=== PATIENT | male | born 1990 | race Caucasian/White ===

== ENCOUNTER 2021-05-26 19:52 | Emergency (ER) | payer OTHER, SELFPAY ==
[2021-05-26 19:57] VITALS: BP 215/124; PULSE 89; RESP 18; TEMP 37; O2SAT 99; BMI 34.2
--- NOTE | 2021-05-26 20:08 | ED_ITS ---
HPI - Chest Pain General: Chief Complaint: Chest Pain Stated Complaint: Chest Pains Time Seen by Provider: 05/26/21 20:07 PFSH ED PFSH: Social History (System 06/20/19 @ 10:54 by Selena Ramirez) Smoking and tobacco status: never smoked Alcohol intake: never Course Vital Signs: Vital signs: Vital Signs Temperature 98.6 F 05/26/21 19:57 Pulse Rate 89 05/26/21 19:57 Respiratory Rate 18 05/26/21 19:57 Blood Pressure 215/124 05/26/21 19:57 Pulse Oximetry 99 05/26/21 19:57 Discharge Plan Discharge Condition: Stable Prescriptions: No Action amoxicillin 875 mg tablet 875 mg PO BID 7 Days Qty: 14 0RF Referrals: Denis Miller MD [Primary Care Provider] - Coding Level of Care Code ED Timber Estimator for Olena Guzmán
--- NOTE | 2021-05-26 20:12 | ED_ITS ---
Documented by User: EROS West 05/26/21 21:33 HPI - Chest Pain General: Chief Complaint: Chest Pain Stated Complaint: Chest Pains Time Seen by Provider: 05/26/21 20:07 History of Present Illness: 31-year-old male patient comes in today with com plaints of chest discomfort. Patient reports pressure. Patient has known elevation in his blood pressure which is higher than normal. Patient usually runs around 140s over upper 80s. Patient's family history includes father having an CA in his 40s and mother also having some cardiac disease into her 50s. Patient denies smoking but does binge drink alcohol weekly. Patient denies any routine medications. Patient appears well. Patient appears in mild to no pain. MD complaint: chest discomfort Onset (ago): day(s) Timing of current episode: constant Pain location: right chest Associated symptoms: Deny dyspnea, fever(s), nausea or vomiting Review of Systems General: Reports: 10 or more systems reviewed and unremarkable except in HPI and below Const: Denies: fever(s) Card: Reports: chest pain Resp: Denies: dyspnea GI: Denies: nausea or vomiting Musc: Denies: neck pain Skin/Breast: Denies: rash PFSH ED PFSH: Social History (System 06/20/19 @ 10:54 by Selena Ramirez) Smoking and tobacco status: never smoked Alcohol intake: never Physical Exam Const: COMMON NORMALS: alert HENMT: COMMON NORMALS: normocephalic HEAD & SCALP: normocephalic Neck/C-Spine: COMMON NORMALS: full ROM and supple Chest: COMMONS NORMALS: normal palpation of entire chest wall Resp: COMMON NORMALS: normal respiratory effort and clear to auscultation bilaterally AUSCULTATION: clear to auscultation bilaterally Cardio: COMMON NORMALS: regular rate and regular rhythm RATE: regular rate RHYTHM: regular rhythm GI: COMMON NORMALS: Normal to inspection, nondistended, normoactive bowel sounds present Extremity: COMMON NORMALS: normal to inspection and no pedal edema Neuro: SENSORIUM/ORIENTATION: Yes alert Psych: COMMON NORMALS: cooperative Skin: COMMON NORMALS: turgor normal GENERAL SKIN EXAM: turgor normal Course 2 Vital Signs: Vital signs: Vital Signs Temperature 98.6 F 05/26/21 19:57 Pulse Rate 78 05/26/21 21:38 Respiratory Rate 18 05/26/21 21:38 Blood Pressure 145/72 05/26/21 21:38 Pulse Oximetry 97 05/26/21 21:38 MDM - Chest Pain Medical Decision Making 31-year-old male patient comes in today with some chest pressure and elevated blood pressure. On exam patient has normal heart rate in the 80s to 90s, blood pressure was elevated at 215 systolic, no edema is noted in the extremities, abdomen soft nontender, patient is afebrile. Differential diagnosis includes ACS, CHF, uncontrolled hypertension. Chest x-ray was normal. CBC CMP and troponin levels were normal. EKG showed no signs of ischemia. Patient was given 10 mg labetalol with good control of blood pressure down to 140 systolic. Patient had relief of discomfort as his pressure came to his normal range. No signs of ACS was noted. I believe patient is discomfort was due to uncontrolled blood pressure. Patient will be placed on lisinopril 1 tablet daily with follow-up with primary care for further instructions. Patient reported understanding of care plan and need for follow-up. Lab Data : 05/26/21 20:30 05/26/21 20:30 Laboratory Results WBC 9.3 10^3/uL (4.0-10.0) 05/26/21 20:30 RBC 4.50 10^6/uL (4.1-5.3) 05/26/21 20:30 Hgb 13.5 g/dL (11.7-16.6) 05/26/21 20:30 Hct 41.3 % (42.0-52.0) L 05/26/21 20: MCV 91.8 fl (80-94) 05/26/21 20: MCH 30.0 pg (28.0-34.0) 05/26/21 20: MCHC 32.7 g/dL (30.0-36.0) 05/26/21 20:30 RDW 14.3 % (12.1-15.1) 05/26/21 20: Plt Count 235 10^3/cmm (130-400) 05/26/21 20:30 MPV 9.9 fL (7.4-10.4) 05/26/21 20: Neut % (Auto) 63.9 % 05/26/21 20:30 Lymph % (Auto) 26.0 % 05/26/21 20:30 [place] % (Auto) 6.8 % 05/26/21 20:30 Eos % (Auto) 2.6 % 05/26/21 20:30 Baso % (Auto) 0.5 % 05/26/21 20:30 Neut # (Auto) 5.96 10^3/uL (1.8-7.7) 05/26/21 20: Lymph # (Auto) 2.4 10^3/uL (0.8-4.8) 05/26/21 20:30 [place] # (Auto) 0.6 10^3/uL (0.2-0.9) 05/26/21 20:30 Eos # (Auto) 0.2 10^3/uL (0.0-0.8) 05/26/21 20: Baso # (Auto) 0.1 10^3/uL (0.0-0.1) 05/26/21 20: Nucleated RBC % (auto) 0 % 05/26/21 20: Nucleated RBCs # 0.0 /100WBC 05/26/21 20:30 Sodium 137 mmol/L (136-145) 05/26/21 20: Potassium 3.8 mmol/L (3.5-5.1) 05/26/21 20: Chloride 102 mmol/L (98-107) 05/26/21 20: Carbon Dioxide 27 mmol/L (22-29) 05/26/21 20:30 Anion Gap 11.8 (5-19) 05/26/21 20: BUN 17 mg/dL (6-20) 05/26/21 20: Creatinine 1.0 mg/dL (0.7-1.2) 05/26/21 20:30 GFR Calculation 86.1 mL/min (90-130) L 05/26/21 20: Glucose 98 mg/dL (65-115) 05/26/21 20: Calculated Osmolality 286 mOsm/kg (285-295) 05/26/21 20: Calcium 10.1 mg/dL (8.5-10.5) 05/26/21 20:30 Total Bilirubin 0.2 mg/dL (0.15-1.2) 05/26/21: AST 19 U/L (0-40) 05/26/21 20:30 ALT 19 U/L (0-41) 05/26/21 20:30 Alkaline Phosphatase 57 IU/L (40-130) 05/26/21 20:30 Troponin T Gen 5 ng/L 6 ng/L (0-15) 05/26/21 20:30 Total Protein 7.1 g/dL (6.6-8.7) 05/26/21 20:30 Albumin 4.6 g/dL (3.5-5.2) 05/26/21 20:30 Globulin 2.5 g/dL (1.3-4.6) 05/26/21 20:30 EKG Data EKG 1: I personally reviewed and interpreted this EKG as follows: EKG interpretation date: 05/26/21 EKG interpretation time: : Prior EKG tracings: not available for review Interpretation: EKG shows a regular sinus rhythm at [address] elevation or ectopy is noted. No prior exam is available for interpretation. Discharge Plan Discharge Patient Disposition: Home Clinical Impression: Chest pain Qualifiers: Chest pain type: unspecified Qualified Code(s): R07.9 - Chest pain, unspecified Hypertension Qualifiers: Hypertension type: unspecified Qualified Code(s): I10 - Essential (primary) hypertension Condition: Stable Prescriptions: New lisinopril-hydrochlorothiazide 10-12.5 mg tablet 1 tab PO DAILY Qty: 30 0RF No Action amoxicillin 875 mg tablet 875 mg PO BID 7 Days Qty: 14 0RF Discharge Orders: Discharge ED (Routine); Ordered 05/26/21 Ordered By: Juan Rollins Referrals: Denis Miller MD [Primary Care Provider] - Discharge Diet: Usual diet Discharge Activity: Increase activity as tolerated Patient Instructions: DASH Eating Plan (ED), Hypertension (ED) Activity Restrictions/Additional Instructions: Home and rest. Medications as directed. When starting the medicine take your time changing position as you may have some mild lightheadedness. This will improve over time. Follow-up with primary care in 3 to 5 days for recheck. Vahid e management will contact you regarding appointment with scenic arts supervisor for further evaluation. Return to ER for new concerns or worsening symptoms. Coding Level of Care Code ED Office Systems Technology Instructor for Chg Fwd Exam Comprehensive Documented by User: João Kaiser Alvarez, 05/26/21 21:54 HPI - Chest Pain General: Chief Complaint: Chest Pain Stated Complaint: Chest Pains Time Seen by Provider: 05/26/21 20:07 PFSH ED PFSH: Social History (System 06/20/19 @ 10:54 by Selena Ramirez) Smoking and tobacco status: never smoked Alcohol intake: never Course Vital Signs: Vital signs: Vital Signs Temperature 98.6 F 05/26/21 19:57 Pulse Rate 78 05/26/21 21:38 Respiratory Rate 18 05/26/21 21:38 Blood Pressure 145/72 05/26/21 21:38 Pulse Oximetry 97 05/26/21 21:38 MDM - Chest Pain Medical Decision Making 31-year-old male patient comes in today with some chest pressure and elevated blood pressure. On exam patient has normal heart rate in the 80s to 90s, blood pressure was elevated at 215 systolic, no edema is noted in the extremities, ab domen soft nontender, patient is afebrile. Differential diagnosis includes ACS, CHF, uncontrolled hypertension. Chest x-ray was normal. CBC CMP and troponin levels were normal. EKG showed no signs of ischemia. Patient was given 10 mg labetalol with good control of blood pressure down to 140 systolic. Patient had relief of discomfort as his pressure came to his normal range. No signs of ACS was noted. I believe patient is discomfort was due to uncontrolled blood pressure. Patient will be placed on lisinopril 1 tablet daily with follow-up with primary care for further instructions. Patient reported understanding of care plan and need for follow-up. This patient was originally seen by EROS Gunderson.? I agree with his history, evaluation, and treatment. Lab Data : 05/26/21 20:30 05/26/21 20:30 Laboratory Results WBC 9.3 10^3/uL (4.0-10.0) 05/26/21 20:30 RBC 4.50 10^6/uL (4.1-5.3) 05/26/21 20: Hgb 13.5 g/dL (11.7-16.6) 05/26/21 20: Hct 41.3 % (42.0-52.0) L 05/26/21: MCV 91.8 fl (80-94) 05/26/21: MCH 30.0 pg (28.0-34.0) 05/26/21: MCHC 32.7 g/dL (30.0-36.0) 05/26/21: RDW 14.3 % (12.1-15.1) 05/26/21: Plt Count 235 10^3/cmm (130-400) 05/26/21 MPV 9.9 fL (7.4-10.4) 05/26/21: Neut % (Auto) 63.9 % 05/26/21: Lymph % (Auto) 26.0 % 05/26/21: [place] % (Auto) 6.8 % 05/26/21: Eos % (Auto) 2.6 % 05/26/21: Baso % (Auto) 0.5 % 05/26/21: Neut # (Auto) 5.96 10^3/uL (1.8-7.7) 05/26/21: Lymph # (Auto) 2.4 10^3/uL (0.8-4.8) 05/26/21: [place] # (Auto) 0.6 10^3/uL (0.2-0.9) 05/26/21: Eos # (Auto) 0.2 10^3/uL (0.0-0.8) 05/26/21: Baso # (Auto) 0.1 10^3/uL (0.0-0.1) 05/26/21: Nucleated RBC % (auto) 0 % 05/26/21 Nucleated RBCs # 0.0 /100WBC 05/26/21 20: Sodium 137 mmol/L (136-145) 05/26/21: Potassium 3.8 mmol/L (3.5-5.1) 05/26/21 20:30 Chloride 102 mmol/L (98-107) 05/26/21 20:30 Carbon Dioxide 27 mmol/L (22-29) 05/26/21 20:30 Anion Gap 11.8 (5-19) 05/26/21 20:30 BUN 17 mg/dL (6-20) 05/26/21 20:30 Creatinine 1.0 mg/dL (0.7-1.2) 05/26/21 20:30 GFR Calculation 86.1 mL/min (90-130) L 05/26/21 20:30 Glucose 98 mg/dL (65-115) 05/26/21 20:30 Calculated Osmolality 286 mOsm/kg (285-295) 05/26/21 20:30 Calcium 10.1 mg/dL (8.5-10.5) 05/26/21 20:30 Total Bilirubin 0.2 mg/dL (0.15-1.2) 05/26/21 20:30 AST 19 U/L (0-40) 05/26/21 20:30 ALT 19 U/L (0-41) 05/26/21 20:30 Alkaline Phosphatase 57 IU/L (40-130) 05/26/21 20:30 Troponin T Gen 5 ng/L 6 ng/L (0-15) 05/26/21 20:30 Total Protein 7.1 g/dL (6.6-8.7) 05/26/21 20:30 Albumin 4.6 g/dL (3.5-5.2) 05/26/21 20:30 Globulin 2.5 g/dL (1.3-4.6) 05/26/21 20:30 Discharge Plan Discharge Patient Disposition: Home Clinical Impression: Chest pain Qualifiers: Chest pain type: unspecified Qualified Code(s): R07.9 - Chest pain, unspecified Hypertension Qualifiers: Hypertension type: unspecified Qualified Code(s): I10 - Essential (primary) hypertension Condition: Stable Prescriptions: New lisinopril-hydrochlorothiazide 10-12.5 mg tablet 1 tab PO DAILY Qty: 30 0RF No Action amoxicillin 875 mg tablet 875 mg PO BID 7 Days Qty: 14 0RF Discharge Orders: Discharge ED (Routine); Ordered 05/26/21 Ordered By: Juan Rollins Referrals: Denis Miller MD [Primary Care Provider] - Discharge Diet: Usual diet Discharge Activity: Increase activity as tolerated Patient Instructions: DASH Eating Plan (ED), Hypertension (ED) Activity Restrictions/Additional Instructions: Home and rest. Medications as directed. When starting the medicine take your time changing position as you may have some mild lightheadedness. This will improve over time. Follow-up with primary care in 3 to 5 days for recheck. Case management will contact you regarding appointment with scenic arts supervisor for further evaluation. Return to ER for new concerns or worsening symptoms. Coding Level of Care Code ED Office Systems Technology Instructor for Chg Fwd Exam Comprehensive
--- NOTE | 2021-05-26 20:15 | ECG_ITS ---
[facility] Test Date: 2021-05-26 Pat Name: Yuniel Mcneill Department: Room: Gender: Male Distribution Dispatcher: : 1990 Requested By: Juan Rocha Order Number: [id number] Mallika MD: Charles Garcia M.D. Measurements Intervals [place] Rate: 79 P: 29 AL: 164 QRS: 18 QRSD: 108 T: 32 QT: 360 QTc: 413 Interpretive Statements SINUS RHYTHM INCOMPLETE RIGHT BUNDLE BRANCH BLOCK [90+ ms QRS DURATION, TERMINAL R IN V1/V2, 40+ ms S IN I/aVL/V4/V5/V6] No previous ECG available for comparison Electronically Signed On 05-27-2021 9:00:29 CDT by Charles Garcia M.D. [email or web address] [id number]
--- NOTE | 2021-05-26 20:32 | XR_ITS ---
WS: [id number] Exam: XR chest 1V portable [id number] Date/Time of Exam: 05/26/2021 8:52 PM Reason For Exam: chest pain No priors. The lungs are clear and fully inflated. Normal cardiomediastinal silhouette and regional bony structu res. No pleural effusions. XR/XR chest 1V portable [id number] IMPRESSION: 1. Negative chest.
[2021-05-26 20:39] LABS: Basophils # 0.1 10^3/uL (0.0-0.1); Basophils % 0.5 %; Eosinophils # 0.2 10^3/uL (0.0-0.8); Eosinophils % 2.6 %; Hematocrit 41.3 % (42.0-52.0); Hemoglobin 13.5 g/dL (11.7-16.6); Lymphocytes # 2.4 10^3/uL (0.8-4.8); Mean Corpuscular HGB Conc 32.7 g/dL (30.0-36.0); Mean Corpuscular Volume 91.8 fl (80-94); Mean Platelet Volume 9.9 fL (7.4-10.4); Monocytes # 0.6 10^3/uL (0.2-0.9); Monocytes % 6.8 %; Neutrophils # 5.96 10^3/uL (1.8-7.7); Neutrophils % 63.9 %; Nucleated Red Blood Cells % 0 %; Platelet Count 235 10^3/cmm (130-400); Red Cell Distribution Width 14.3 % (12.1-15.1); White Blood Count 9.3 10^3/uL (4.0-10.0)
[2021-05-26] MEDS: labetalol 5 mg/mL SDV 20mL 10 MG IVP (20:39)
[2021-05-26 21:00] LABS: Alanine Aminotransferase 19 U/L (0-41); Albumin Level 4.6 g/dL (3.5-5.2); Alkaline Phosphatase 57 IU/L (40-130); Anion Gap 11.8 (5-19); Aspartate Amino Transferase 19 U/L (0-40); Blood Urea Nitrogen 17 mg/dL (6-20); Calcium 10.1 mg/dL (8.5-10.5); Carbon Dioxide 27 mmol/L (22-29); Chloride 102 mmol/L (98-107); Globulin 2.5 g/dL (1.3-4.6); Glomerular Filtration Rate 86.1 mL/min (90-130); Glucose 98 mg/dL (65-115); Osmolality Calculated 286 mOsm/kg (285-295); Potassium 3.8 mmol/L (3.5-5.1); Sodium 137 mmol/L (136-145); Total Bilirubin 0.2 mg/dL (0.15-1.2); Total Protein 7.1 g/dL (6.6-8.7); Troponin T (5th) Once 6 ng/L (0-15)
[2021-05-26] MEDS: lisinopril 10 mg Tablet PO (21:25)
[2021-05-26 21:38] VITALS: BP 145/72; PULSE 78; RESP 18; O2SAT 97
--- NOTE | 2021-05-27 09:55 | DCPLANNER ---
Addendum entered by Shruthi Veronica 07/18/21 10:07: Patient had a follow up appointment scheduled for 07.17.21 - appointment was cancelled Addendum entered by Shruthi Veronica 05/28/21 14:28: Patient has a follow up appointment scheduled for Thursday, July 17, 2021 at 12:[address] Olguin at [facility]. assistant production manager called patient and gave patient the appointment information. Original Note: assistant production manager had message to schedule a follow up appointment for patient with [facility]. assistant production manager sent patients information to the front staff at [facility] thru [employer] task/message system. Patients information will be printed and reviewed. Clinic will notify correctional counselor/case manager of appointment information.
== END 2021-05-26 21:39 | disposition home or self-care (01) ==
PROVIDERS: Emergency Provider Nurse Practitioner Family; PCP Family Medicine
DX: R07.9 Chest pain, unspecified (principal); I10 Essential (primary) hypertension
CPT/HCPCS: 71045; 80053; 84484; 85025; 93005; 96374; 99283; J3490

== ENCOUNTER → 2021-08-19 14:02 | Outpatient (BNVA) | payer OTHER, SELFPAY | PROVIDERS: PCP Family Medicine; Visit Provider Family Medicine | DX: R07.9 Chest pain, unspecified (principal); I10 Essential (primary) hypertension; R53.83 Other fatigue | CPT/HCPCS: 84402; 84403; 84443 ==

== ENCOUNTER 2022-10-13 20:33 | Emergency (ER) | payer OTHER, SELFPAY ==
[2022-10-13 20:36] VITALS: BP 144/94; PULSE 94; RESP 16; TEMP 36.7; O2SAT 98; BMI 36.2
--- NOTE | 2022-10-13 20:59 | XRR_ITS ---
PROCEDURE INFORMATION: Exam: XR Chest Exam date and time: 10/13/2022 9:23 PM Age: 32 years old Clinical indication: Pain; Chest pressure; Additional info: Chest pain TECHNIQUE: Imaging protocol: Radiologic exam of the chest. Views: 1 view. COMPARISON: CR XR chest 1V portable [id number] 05/26/2021 9:10 PM FINDINGS: Lungs: Unremarkable. No consolidation. Pleural spaces: Unremarkable. No pleural effusion. No pneumothorax. Heart/Mediastinum: Unremarkable. No cardiomegaly. Bones/joints: Unremarkable. XR/XR chest 1V portable [id number] IMPRESSION: No acute findings.
--- NOTE | 2022-10-13 21:00 | ED_ITS ---
HPI - Chest Pain General: Chief Complaint: Chest Pain Stated Complaint: Chest Pains Time Seen by Provider: 10/13/22 20:59 History of Present Illness: 32-year-old male patient comes in today with complaints of left chest wall pain along with neck pain and tingling in left fingers. Patient appears nontoxic. Patient appears in mild to no pain. Patient has a history of anxiety and h ypertension. Patient does chew tobacco and drink alcohol. Patient denies any other drug consumption. Associated symptoms: Deny abdominal pain, dyspnea, nausea or vomiting Review of Systems General: Reports: 10 or more systems reviewed and unremarkable except in HPI and below Card: Denies: chest pain Resp: Denies: dyspnea GI: Denies: abdominal pain, nausea, vomiting, diarrhea or constipation Musc: Denies: back pain Neuro: Reports: numbness in extremities (Left hand fourth and fifth finger) PFSH ED PFSH: Social History (System 06/20/19 @ 10:54 by Selena Ramirez) Smoking and tobacco status: never smoked Alcohol intake: never Substance/Drug Use: never Physical Exam Const: COMMON NORMALS: alert HENMT: COMMON NORMALS: normocephalic HEAD & SCALP: normocephalic Neck/C-Spine: COMMON NORMALS: full ROM CERVICAL SPINE: No Cervical spine tenderness Chest: COMMONS NORMALS: normal inspection of the chest and normal palpation of entire chest wall Resp: COMMON NORMALS: normal respiratory effort and clear to auscultation bilaterally AUSCULTATION: clear to auscultation bilaterally Cardio: COMMON NORMALS: regular rate and regular rhythm RATE: regular rate RHYTHM: regular rhythm GI: COMMON NORMALS: Soft to palpation and non-tender PALPATION: Yes Soft to palpation : COMMON NORMALS: Yes no CVA tenderness BLADDER/KIDNEY EXAM: Yes no CVA tenderness Back/Pelvis: COMMON NORMALS: no CVA tenderness Extremity: COMMON NORMALS: no pedal edema Neuro: SENSORIUM/ORIENTATION: Yes alert Skin: COMMON NORMALS: turgor normal GENERAL SKIN EXAM: turgor normal Course Vital Signs: Vital signs: Vital Signs Temperature 98.1 F 10/13/22 20:36 Pulse Rate 91 10/13/22 22:30 Respiratory Rate 16 10/13/22 22:30 Blood Pressure 130/89 10/13/22 22:30 Pulse Oximetry 97 10/13/22 22:30 Oxygen Delivery Me thod Room Air 10/13/22 20:36 MDM - Chest Pain Medical Decision Making 32-year-old male patient comes in today for complaints of chest pain with left shoulder and numbness in the left fingers. On exam patient appears nontoxic. Patient appears no acute distress. Vital signs are normal. No pain is elicited along the spine. Patient moving all extremities well. Differential diagnosis includes but not limited to anxiety, ACS, cervical radiculopathy, carpal tunnel syndrome. Laboratory values were unremarkable except for his creatinine was 1.7. I believe that this is most likely due to the medication he is on at this time for blood pressure but may also be due to some mild dehydration due to being out in the heat. I encouraged fluid replacement and recheck labs with primary care in 1 week because at that time they may want to switch blood pressure medicine if his creatinine remains elevated. Patient reported understanding and agreed to plan. Lab Data 10/13/22 21:05 10/13/22 21:05 Radiology Impressions Chest X-Ray 10/13/22 20:59 IMPRESSION: No acute findings. Laboratory Results WBC 9.0 10^3/uL (4.0-10.0) 10/13/22 21:05 RBC 4.86 10^6/uL (4.1-5.3) 10/13/22 21:05 Hgb 14.2 g/dL (11.7-16.6) 10/13/22 21:05 Hct 43.8 % (42.0-52.0) 10/13/22 21:05 MCV 90.1 fl (80-94) 10/13/22 21:05 MCH 29.2 pg (28.0-34.0) 10/13/22 21:05 MCHC 32.4 g/dL (30.0-36.0) 10/13/22 21:05 RDW 12.9 % (12.1-15.1) 10/13/22 21:05 Plt Count 241 10^3/cmm (130-400) 10/13/22 21:05 MPV 9.7 fL (7.4-10.4) 10/13/22 21:05 Neut % (Auto) 56.4 % 10/13/22 21:05 Lymph % (Auto) 33.1 % 10/13/22 21:05 [place] % (Auto) 7.0 % 10/13/22 21:05 Eos % (Auto) 2.5 % 10/13/22 21:05 Baso % (Auto) 0.8 % 10/13/22 21:05 Neut # (Auto) 5.08 10^3/uL (1.8-7.7) 10/13/22 21:05 Lymph # (Auto) 3.0 10^3/uL (0.8-4.8) 10/13/22 21:05 [place] # (Auto) 0.6 10^3/uL (0.2-0.9) 10/13/22 21:05 Eos # (Auto) 0.2 10^3/uL (0.0-0.8) 10/13/22 21:05 Baso # (Auto) 0.1 10^3/uL (0.0-0.1) 10/13/22 21:05 Nucleated RBC % (auto) 0 % 10/13/22 21:05 Nucleated RBCs # 0.0 /100WBC 10/13/22 21:05 D-Dimer <= 0.27 ug/mIFEU (0-0.59) 10/13/22 21:05 Sodium 138 mmol/L (136-145) 10/13/22 21:05 Potassium 3.8 mmol/L (3.5-5.1) 10/13/22 21:05 Chloride 100 mmol/L (98-107) 10/13/22 21:05 Carbon Dioxide 28 mmol/L (22-29) 10/13/22 21:05 Anion Gap 13.8 (5-19) 10/13/22 21:05 BUN 15 mg/dL (6-20) 10/13/22 21:05 Creatinine 1.7 mg/dL (0.7-1.2) H 10/13/22 21:05 GFR Calculation 46.4 mL/min (90-130) L 10/13/22 21:05 Glucose 91 mg/dL (65-115) 10/13/22 21:05 Calculated Osmolality 286 mOsm/kg (285-295) 10/13/22 21:05 Calcium 9.5 mg/dL (8.5-10.5) 10/13/22 21:05 Total Bilirubin 0.2 mg/dL (0.15-1.2) 10/13/22 21:05 AST 21 U/L (0-40) 10/13/22 21:05 ALT 32 U/L (0-41) 10/13/22 21:05 Alkaline Phosphatase 63 U/L (40-130) 10/13/22 21:05 Troponin T Baseline 8 ng/L (0-15) 10/13/22 21:05 Total Protein 6.9 g/dL (6.6-8.7) 10/13/22 21:05 Albumin 4.5 g/dL (3.5-5.2) 10/13/22 21:05 Globulin 2.4 g/dL (1.3-4.6) 10/13/22 21:05 Lipase 21 U/L (13-60) 10/13/22 21:05 Discharge Plan Discharge Patient Disposition: Home Clinical Impression: Chest pain Qualifiers: Chest pain type: unspecified Qualified Code(s): R07.9 - Chest pain, unspecified Hypertension Qualifiers: Hypertension type: unspecified Qualified Code(s): I10 - Essential (primary) hypertension Condition: Stable Prescriptions: No Action amoxicillin 875 mg tablet 875 mg PO BID 7 Days Qty: 14 0RF lisinopril-hydrochlorothiazide 10-12.5 mg tablet 1 tab PO DAILY Qty: 30 0RF Discharge Orders: Discharge ED (Routine); Ordered 10/13/22 Ordered By: Juan Rollins Referrals: Denis Miller MD [Primary Care Provider] - Discharge Diet: Usual diet Discharge Activity: Increase activity as tolerated Patient Instructions: Hypertension (ED) Activity Restrictions/Additional Instructions: Drink plenty of water. Follow-up with primary care in 1 week for recheck of labs for kidney function due to some elevation in creatinine. Most likely this is due to the high blood pressure medication you are on and they may need to switch the medication. Is important to stay well-hydrated during the heat as this may also be reasoning for elevation of your creatinine. It is important to have this blood work rechecked as it just may be a transient finding that returns to normal on its own. Return to ER for new concerns such as high fever, no urinary output, swelling of the extremities, and shortness of breath. Coding Level of Care Code ED Registered Diet Technician for Olena Guzmán
--- NOTE | 2022-10-13 21:00 | ECG_ITS ---
[facility] Test Date: 2022-10-13 Pat Name: Yuniel Mcneill Department: Room: Gender: Male [employer]: : 1990 Requested By: Juan Rocha Order Number: [id number] Mallika MD: Chelsi Tobar M.D. Measurements Intervals [place] Rate: 87 P: 35 [place]: 185 QRS: 15 QRSD: 102 T: 43 QT: 352 QTc: 425 Interpretive Statements SINUS RHYTHM Compared to ECG 05/26/2021 20:19:54 Incomplete right bundle-branch block no longer present Electronically Signed On 10-14-2022 3:49:24 CDT by Chelsi Tobar M.D. [id number]
[2022-10-13 21:20] LABS: Basophils # 0.1 10^3/uL (0.0-0.1); Basophils % 0.8 %; Eosinophils # 0.2 10^3/uL (0.0-0.8); Eosinophils % 2.5 %; Hematocrit 43.8 % (42.0-52.0); Hemoglobin 14.2 g/dL (11.7-16.6); Lymphocytes % 33.1 %; Mean Corpuscular HGB Conc 32.4 g/dL (30.0-36.0); Mean Corpuscular Hemoglobin 29.2 pg (28.0-34.0); Mean Corpuscular Volume 90.1 fl (80-94); Mean Platelet Volume 9.7 fL (7.4-10.4); Monocytes # 0.6 10^3/uL (0.2-0.9); Neutrophils # 5.08 10^3/uL (1.8-7.7); Neutrophils % 56.4 %; Nucleated Red Blood Cells % 0 %; Platelet Count 241 10^3/cmm (130-400); Red Blood Count 4.86 10^6/uL (4.1-5.3); Red Cell Distribution Width 12.9 % (12.1-15.1)
[2022-10-13 21:27] LABS: D Dimer <= 0.27 ug/mIFEU (0-0.59)
[2022-10-13 21:35] VITALS: BP 132/81; PULSE 89; RESP 19; O2SAT 98
[2022-10-13 21:35] LABS: Troponin(5th) Baseline 8 ng/L (0-15)
[2022-10-13 21:37] LABS: Alanine Aminotransferase 32 U/L (0-41); Albumin Level 4.5 g/dL (3.5-5.2); Alkaline Phosphatase 63 U/L (40-130); Anion Gap 13.8 (5-19); Aspartate Amino Transferase 21 U/L (0-40); Blood Urea Nitrogen 15 mg/dL (6-20); Calcium 9.5 mg/dL (8.5-10.5); Carbon Dioxide 28 mmol/L (22-29); Chloride 100 mmol/L (98-107); Globulin 2.4 g/dL (1.3-4.6); Glomerular Filtration Rate 46.4 mL/min (90-130); Glucose 91 mg/dL (65-115); Lipase 21 U/L (13-60); Osmolality Calculated 286 mOsm/kg (285-295); Potassium 3.8 mmol/L (3.5-5.1); Sodium 138 mmol/L (136-145); Total Bilirubin 0.2 mg/dL (0.15-1.2); Total Protein 6.9 g/dL (6.6-8.7)
[2022-10-13 22:30] VITALS: BP 130/89; PULSE 91; RESP 16; O2SAT 97
== END 2022-10-13 22:32 | disposition home or self-care (01) ==
PROVIDERS: Emergency Provider Nurse Practitioner Family; PCP Family Medicine
DX: R07.9 Chest pain, unspecified (principal); I10 Essential (primary) hypertension
CPT/HCPCS: 71045; 80053; 83690; 84484; 85025; 85378; 93005; 99285

== ENCOUNTER 2022-11-09 11:05 | Inpatient (IN) | payer OTHER, SELFPAY ==
[2022-11-09] VITALS (8 sets, daily range): BP systolic 118–156; BP diastolic 67–101; PULSE 95–105; RESP 16–20; TEMP 36.7–37.8; O2SAT 91–98; BMI 36.9
--- NOTE | 2022-11-09 11:31 | CTR_ITS ---
PROCEDURE INFORMATION: Exam: CT Pelvis With Contrast Exam date and time: 11/09/2022 1:15 PM Age: 32 years old Clinical indication: Other: Anorectal abscess TECHNIQUE: Imaging protocol: Computed tomography of the pelvis with contrast. Radiation optimization: All CT scans at this facility use at least one of these dose optimization techniques: automated exposure control; mA and/or kV adjustment per patient size (includes targeted exams where dose is matched to clinical indication); or iterative reconstruction. Contrast material: OMNI 350; Contrast volume: 100 ml; Contrast route: INTRAVENOUS (IV); REPORTING DATA: Count of CT and Cardiac NM exams in prior 12 months: This patient has received 0 known CTs and 0 known cardiac nuclear medicine studies in the 12 months prior to the current study. COMPARISON: No relevant prior studies available. RADIATION DOSE METRICS: Total DLP (mGy-cm): 807.54 FINDINGS: Stomach and bowel: Visualized small bowel and colon are unremarkable. Appendix: Appendix is not visualized and appears to been previously removed. Intraperitoneal space: Unremarkable. No free air. No significant fluid collection. Lymph nodes: Unremarkable. No enlarged lymph nodes. Urinary bladder: Unremarkable as visualized. Reproductive: Unremarkable as visualized. Bones/joints: Unremarkable. No acute fracture. No dislocation. Soft tissues: Small oblong shaped thick-walled fluid collection measuring 4.5 x 1.3 x 1.8 cm beginning along the inferior margin of the internal sphincter and extending inferiorly along the medial gluteal fold suspicious for perianal abscess. Surrounding fat planes in the ischial anal fossa are fairly well preserved. CT/CT pelvis w con* [id number] IMPRESSION: 4.5 x 1.3 x 1.8 cm left perianal abscess
--- NOTE | 2022-11-09 11:31 | ED_ITS ---
HPI - Skin/Abscess/Foreign Bdy General: Chief complaint: Skin/Abscess/Foreign Body Stated complaint: abcess sent by Time Seen by Provider: 11/09/22 11:06 History of Present Illness: Yuniel is a 32-year-old man that presents to the emergency department with an abscess. Patient reports perianal abscess. Onset Thursday. This is his third event. Initially had 1 proximately 10 years ago which required surgical intervention. That was performed by Dr. Hobbs who is no longer at this facility. Patient has had this pain since Thursday and has now become febrile Patient is treated for hypertension takes no other medications. Patient was seen originally urgent care sent over for imaging. Associated symptoms: Reports chills and fever(s); Deny nausea or vomiting Review of Systems General: Reports: 10 or more systems reviewed and unremarkable except in HPI and below Const: Reports: fever(s), chills and fatigue; Denies: change in appetite, change in weight or malaise Eyes: Denies: change in vision, eye discomfort, eye discharge or eye redness ENMT: Denies: throat pain, enlarged tonsils, odynophagia, hoarseness, ear or mastoid pain, ear discharge, change in hearing, tinnitus, nasal discharge, nasal congestion, post nasal drip or sinus pain Card: Denies: chest pain, palpitations, irregular heart rhythm, edema, dyspnea on exertion, orthopnea or leg pain with exertion Resp: Denies: dyspnea, productive cough, non-productive cough, wheezing, stridor or chest congestion GI: Reports: rectal pain and rectal swelling; Denies: abdominal pain, nausea, vomiting, dysphagia, diarrhea, constipation, bloating, GI cramping or hematochezia : Denies: flank pain, dysuria, urinary frequency, urinary urgency, urinary hesitancy, oliguria or hematuria Musc: Denies: neck pain, back pain, extremity pain, joint pain, joint swelling, joint redness, joint warmth or muscle weakness Skin/Breast: Denies: rash, pruritus, erythema, photosensitivity or new lesions Neuro: Denies: headache(s), numbness in extremities, weakness in extremities, sensory changes, lack of coordination, difficulty walking, frequent falls, dizziness, confusion, Slurred speech present, difficulty communicating thoughts, seizure-like activity or involuntary movements Endo: Denies: polyuria, polydipsia or tired all the time Roberto/Lymph: Denies: easy bruising or easy bleeding PFSH ED PFSH: Social History Smoking and tobacco status: never smoked Alcohol intake: never Substance/Drug Use: never Physical Exam Const: COMMON NORMALS: no acute distress, patient oriented x3 and alert GENERAL APPEARANCE: cooperative ORIENTATION/CONSCIOUSNESS: Yes awake, Yes oriented to person, Yes oriented to place and Yes oriented to time HENMT: COMMON NORMALS: normocephalic and atraumatic HEAD & SCALP: normocephalic and atraumatic FACE & SINUS: normal facial exam MOUTH: Normal oral and palatal mucosa present THROAT: posterior oropharynx normal Eye: COMMON NORMALS: Equal, round and reactive pupils present, EOMs intact bilaterally, conjunctivae normal and no scleral icterus GENERAL EYE: ap pearance normal, both eyes and all related structures ALIGNMENT: Yes alig nment normal PERIORBITAL: periorbital findings normal CONJUNCTIVA: Yes conjunctivae normal PUPIL: Yes Equal, round and reactive pupils present Neck/C-Spine: COMMON NORMALS: full ROM GENERAL: Yes normal visual inspection Lymph: LYMPHATIC: no lymphadenopathy noted Chest: COMMONS NORMALS: normal inspection of the chest Breast/axilla inspection: Yes no chest deformity, asymmetry, normal contours, no nodules, masses, tenderness Resp: COMMON NORMALS: normal respiratory effort, No retractions, No use of accessory muscles and clear to auscultation bilaterally EFFORT & INSPECTION: Yes able to speak in complete sentences and Yes symmetric chest movement AUSCULTATION: clear to auscultation bilaterally Cardio: COMMON NORMALS: regular rate, regular rhythm and Peripheral pulses 2+ throughout RATE: regular rate RHYTHM: regular rhythm PERIPHERAL PULSES: Peripheral pulses 2+ throughout GI: COMMON NORMALS: Normal to inspection, nondistended, normoactive bowel sounds present, Soft to palpation, non-tender and No hepatosplenomegaly present INSPECTION: Yes normal to inspection AUSCULTATION: Yes normoactive bowel sounds PALPATION: Yes Soft to palpation and Yes No hepatosplenomegaly present RECTAL EXAM: Yes tenderness and Yes other (anorectal abscess that extends into the left intergluteal cleft) Extremity: COMMON NORMALS: normal to inspection GENERAL: Yes normal exam except as noted Neuro: COMMON NORMALS: patient oriented x3 SENSORIUM/ORIENTATION: Yes alert, Yes oriented to person, Yes oriented to place and Yes oriented to time CRANIAL NERVES: Yes CN normal except as noted Psych: COMMON NORMALS: mental status grossly normal, Normal thought process p resent, cooperative, activity/motor behavior normal, denies homicidal ideation and denies suicidal ideation THOUGHT PROCESS: Normal thought process present Skin: COMMON NORMALS: no rashes or lesions noted, no wounds and turgor normal GENERAL SKIN EXAM: no rashes or lesions noted and turgor normal Course Vital Signs: Vital signs: Vital Signs Temperature 98.0 F 11/09/22 11:06 Pulse Rate 95 11/09/22 11:06 Respiratory Rate 17 11/09/22 14:28 Blood Pressure 135/73 11/09/22 11:24 Pulse Oximetry 95 11/09/22 14:28 Oxygen Delivery Me thod Room Air 11/09/22 11:06 MDM - Skin/Abscess/Foreign Bdy Medicial Decision Making Patient was evaluated in the emergency department due to perianal pain. Patient states he has a history of perianal abscesses. 1 given required surgical resection proximately [address] Hobbs. Patient states this episode started on Thursday and has rapidly increased with pain and swelling. Patient is no longer able to pass stools secondary to pain Patient has abscess formation localized at the anus and extending up the left intergluteal cleft Did obtain laboratory studies to evaluate extent of illness and obtained a CT pelvis with contrast. CT pelvis reveals a 4.5 x 1.3 x 1.8 cm left perianal abscess that extends inferiorly from the internal sphincter. Patient has a mild elevation in white count and mild elevation in creatinine without history. Lactic acid is normal No electrolyte abnormalities Consulted Dr. Tello with general surgery who is recommended colorectal surgery. Patient has selected [facility] we are seeking out line facility transfer Fortunately [facility] does not have colorectal surgeon on today and [facility] does not have a bed available. [facility] was contacted but does not have a bed available. Talked with patient about which direction to take n ext for transfer and he is declining. He would prefer to have outpatient follow-up. I did speak with Dr. Tello who has agreed to do an I&D for perianal abscess tomorrow; patient will then seek outpatient follow-up for colorectal surgery for definitive treatment. Case management is consulted to assist with outpatient referral Patient was given vancomycin today and admission orders were placed for Tello. Patient has been updated Lab Data 11/09/22 11:56 11/09/22 11:[address] 11/09/22 11:31 IMPRESSION: 4.5 x 1.3 x 1.8 cm left perianal abscess Laboratory Results WBC 12.10 10^3/uL (3.29-11.43) H 11/09/22 11:56 RBC 4.64 10^6/uL (3.85-5.65) 11/09/22 11:56 Hgb 13.70 g/dL (11.27-16.99) 11/09/22 11:56 Hct 42.4 % (37-53) 11/09/22 11:56 MCV 91.4 fl (82-101) 11/09/22 11:56 MCH 29.5 pg (27-33) 11/09/22 11:56 MCHC 32.3 g/dL (30-55) 11/09/22 11:56 RDW 12.7 % (12.1-15.1) 11/09/22 11:56 Plt Count 212 10^3/cmm (157-399) 11/09/22 11:56 MPV 9.3 fL (7.4-10.4) 11/09/22 11:56 Neut % (Auto) 74.4 % 11/09/22 11:56 Lymph % (Auto) 17.6 % 11/09/22 11:56 Rabun % (Auto) 6.1 % 11/09/22 11:56 Eos % (Auto) 1.1 % 11/09/22 11:56 Baso % (Auto) 0.5 % 11/09/22 11:56 Neut # (Auto) 9.00 10^3/uL (1.8-7.7) H 11/09/22 11:56 Lymph # (Auto) 2.1 10^3/uL (0.8-4.8) 11/09/22 11:56 Rabun # (Auto) 0.7 10^3/uL (0.2-0.9) 11/09/22 11:56 Eos # (Auto) 0.1 10^3/uL (0.0-0.8) 11/09/22 11:56 Baso # (Auto) 0.1 10^3/uL (0.0-0.1) 11/09/22 11:56 Nucleated RBC % (auto) 0 % 11/09/22 11:56 Nucleated RBCs # 0.0 /100WBC 11/09/22 11:56 Sodium 138 mmol/L (136-145) 11/09/22 11:56 Potassium 4.1 mmol/L (3.5-5.1) 11/09/22 11:56 Chloride 102 mmol/L (98-107) 11/09/22 11:56 Carbon Dioxide 24 mmol/L (22-29) 11/09/22 11:56 Anion Gap 16.1 (5-19) 11/09/22 11:56 BUN 14 mg/dL (6-20) 11/09/22 11:56 Creatinine 1.3 mg/dL (0.7-1.2) H 11/09/22 11:56 GFR Calculation 63.2 mL/min (90-130) L 11/09/22 11:56 Glucose 93 mg/dL (65-115) 11/09/22 11:56 Calculated Osmolality 286 mOsm/kg (285-295) 11/09/22 11:56 Lactic Acid 1.0 mmol/L (0.5-2.2) 11/09/22 13:06 Calcium 9.2 mg/dL (8.5-10.5) 11/09/22 11:56 Total Bilirubin 0.4 mg/dL (0.15-1.2) 11/09/22 11:56 AST 25 U/L (0-40) 11/09/22 11:56 ALT 35 U/L (0-41) 11/09/22 11:56 Alkaline Phosphatase 76 U/L (40-130) 11/09/22 11:56 Total Protein 7.6 g/dL (6.6-8.7) 11/09/22 11:56 Albumin 4.3 g/dL (3.5-5.2) 11/09/22 11:56 Globulin 3.3 g/dL (1.3-4.6) 11/09/22 11:56 Discharge Plan Discharge Patient Disposition: Admitted As Inpatient Clinical Impression: Abscess, perianal Condition: Stable Prescriptions: No Action mupirocin 2 % ointment 1 applic topical TID 10 Days Qty: 15 0RF sulfamethoxazole-trimethoprim [Bactrim DS] 800-160 mg tablet 1 tab PO BID 7 Days Qty: 14 0RF lisinopril-hydrochlorothiazide 10-12.5 mg tablet 1 tab PO DAILY Qty: 30 0RF Multi-Vitamins Tablet 1 tab PO DAILY Referrals: Denis Miller MD [Primary Care Provider] - Coding Level of Care Code ED Commercial Kitchen Service Technician for Olena Guzmán
[2022-11-09] MEDS: ondansetron 2 mg/ML SDV 2 mL 4 MG IVP (11:49)
[2022-11-09] MEDS: fentaNYL 50 mcg/mL INJ 2mL IVP ×2 (11:50→14:28)
[2022-11-09 12:05] LABS: Basophils # 0.1 10^3/uL (0.0-0.1); Basophils % 0.5 %; Eosinophils # 0.1 10^3/uL (0.0-0.8); Eosinophils % 1.1 %; Hematocrit 42.4 % (37-53); Lymphocytes # 2.1 10^3/uL (0.8-4.8); Lymphocytes % 17.6 %; Mean Corpuscular HGB Conc 32.3 g/dL (30-55); Mean Corpuscular Hemoglobin 29.5 pg (27-33); Mean Corpuscular Volume 91.4 fl (82-101); Mean Platelet Volume 9.3 fL (7.4-10.4); Monocytes # 0.7 10^3/uL (0.2-0.9); Monocytes % 6.1 %; Neutrophils % 74.4 %; Nucleated Red Blood Cells % 0 %; Platelet Count 212 10^3/cmm (157-399); Red Blood Count 4.64 10^6/uL (3.85-5.65); Red Cell Distribution Width 12.7 % (12.1-15.1)
[2022-11-09 12:35] LABS: Alanine Aminotransferase 35 U/L (0-41); Albumin Level 4.3 g/dL (3.5-5.2); Alkaline Phosphatase 76 U/L (40-130); Anion Gap 16.1 (5-19); Aspartate Amino Transferase 25 U/L (0-40); Blood Urea Nitrogen 14 mg/dL (6-20); Calcium 9.2 mg/dL (8.5-10.5); Carbon Dioxide 24 mmol/L (22-29); Chloride 102 mmol/L (98-107); Globulin 3.3 g/dL (1.3-4.6); Glomerular Filtration Rate 63.2 mL/min (90-130); Glucose 93 mg/dL (65-115); Osmolality Calculated 286 mOsm/kg (285-295); Potassium 4.1 mmol/L (3.5-5.1); Sodium 138 mmol/L (136-145); Total Bilirubin 0.4 mg/dL (0.15-1.2); Total Protein 7.6 g/dL (6.6-8.7)
[2022-11-09] MEDS: sodium chloride 0.9% 1,000 ML 999 ML IV (13:06)
[2022-11-09] MEDS: piperacillin-tazobactam 3.375 GM in sodium chloride 0.9% (plus) 50 ML IV (15:24)
[2022-11-09] MEDS: vancomycin 1,750 MG/350 ML PIGGYBACK 233.33 MG IV (16:22)
[2022-11-09] MEDS: sodium chloride 0.9% 1,000 ML 100 ML IV (16:22)
[2022-11-09] MEDS: morphine 4 mg/mL SDV 1 mL IVP (16:23)
[2022-11-09] MEDS: HYDROcodone-acetaminophen 5-325 mg Tablet 1 TAB PO (19:40)
[2022-11-10] VITALS (17 sets, daily range): BP systolic 104–135; BP diastolic 63–81; PULSE 79–101; RESP 15–18; TEMP 36.2–37.5; O2SAT 92–96
[2022-11-10] MEDS: HYDROcodone-acetaminophen 5-325 mg Tablet 1 TAB PO ×2 (00:16→16:02)
[2022-11-10] MEDS: sodium chloride 0.9% 1,000 ML 100 ML IV ×2 (00:26→11:44)
[2022-11-10] MEDS: vancomycin 1,750 MG/350 ML PIGGYBACK 233.33 MG IV (04:31)
--- NOTE | 2022-11-10 12:52 | P.HP_ITS ---
Providers/Chief Complaint Admitting Physician: Chad Tello DO Primary Care Provider: Denis Miller MD Chief Complaint: abcess sent by History of Present Illness Yuniel Mcneill is a 32 year old male who presents to the emergency room with a 2- day history of perirectal pain. He has had 2 perirectal abscesses in the past. He denies any fever or chills. Pain is located in his peroneum. Pain is sharp and constant. Palpation makes pain worse. Nothing makes pain better. Denies any fever or chills. CT of the pelvis shows an intersphincteric perirectal abscess Review of Systems General: Reports: 10 or more systems reviewed and unremarkable except in HPI and below Medications/Allergies Home Medications Medication Instructions Recorded Confirmed Last Taken Type lisinopril 10 1 tab PO DAILY #30 tabs 05/26/21 11/09/22 11/08/22 Rx mg-hydrochlorothiazide 12.5 mg tablet mupirocin 2 % topical ointment 1 applic topical TID 10 days #15 11/07/22 11/09/22 Unknown Rx grams sulfamethoxazole 800 1 tab PO BID 7 days #14 tabs 11/07/22 11/09/22 11/09/22 Rx mg-trimethoprim 160 mg tablet (Bactrim DS) multivitamin 1 tab PO DAILY 11/09/22 11/09/22 11/08/22 History Allergies Allergy/AdvReac Type Severity Reaction Status Date / Time adhesive Allergy ALGY-Hives Verified 11/09/22 11:12 PFSH Acute PFSH: Social History Smoking and tobacco status: never smoked Alcohol intake: never Substance/Drug Use: never Vitals/I&O/Wt Last Vital Signs Temp 98.0 F 11/10/22 11:21 Pulse 83 11/10/22 11:21 Resp 16 11/10/22 11:21 BP 105/68 11/10/22 08:00 Pulse Ox 96 11/10/22 11:21 O2 Del Method Room Air 11/10/22 11:21 11/09/22 11/10/22 11/10/22 22:59 06:59 14:59 Intake Total 999 806.667 / 2806.667 1350 / 1350 Balance 999 806.667 / 2806.667 1350 / 1350 Weight last 48 hrs Weight 265 lb Physical Exam Narrative: General : Patient is well developed , no acute distress, oriented x3 Head : Normal cephalic, a-traumatic. Ears : Pinnae and external canal are normal. Hearing is normal. Eyes : PERRLA, Sclera and injection are normal. No conjunctival discharge. Nose : Mucous membranes are without erythema. Throat : buccal mucosa is normal, gums are without significant recession or hypertrophy. Lungs : Equal chest rise bilaterally, no use of accessory muscles, trachea is midline. Cor : Rate and rhythm are normal. Abdomen : Soft, ND, NT, no g/r/m skin: There is an open and draining abscess In the left buttock and perineum Extremities : No edema, no cyanosis or clubbing, dorsalis pedis pulses are present bilaterally, non-tender to palpation of calves. Upper extremities are normal bilaterally. Back : non-tender to palpation, no CVA tenderness. Neuro : CN II - XII intact, Upper and lower extremities have equal and full strength Data 11/09/22 11:56 11/09/22 11:56 A&P Assessment and plan (1) Perirectal abscess: Plan Incision and drainage of perirectal abscess The risk and benefits of procedure, including but not limited to, bleeding, infection, recurrence, scar, numbness, pain, damage to surrounding structures including the anal sphincter, were explained to the patient. He is understanding of the risks and wishes to proceed Attestations Medical Necessity Statement*: Gallbladder 1 night in the hospital for IV antibiotics and recovery after incision and drainage of perirectal abscess Coding Level of Care Code 08537 Diagnoses Perirectal abscess K61.1
[2022-11-10] MEDS: sodium chloride 0.9% 1,000 ML 30 ML IV (13:32)
[2022-11-10] MEDS: lidocaine-epi 2% 20 mL INJ INJECTION (14:36)
--- NOTE | 2022-11-10 15:57 | P.OP_ITS ---
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 Incision and drainage is indicated. The risk and benefits were explained and documented. Procedure: Patient was wheeled in operative room and remained on his hospital bed in the s upine position. General anesthesia with an LMA was performed by the department of anesthesia. Patient was then put in the left lateral decubitus position. The perineum and surrounding areas were inspected prepped and draped in usual sterile fashion. A timeout was performed. All present were in agreement. After localizing with 2% lidocaine with epinephrine, the area where the abscess was draining on the left buttock near the anus was extended with a 10 blade scalpel to 1.5 cm. There was minimal purulence. Abscess cavity was gently probed and cultures were taken. The cavity was irrigated and suctioned. Half- inch iodoform gauze was packed into the wound. Sterile bandages applied. Patient tolerated procedure well.
[2022-11-10] MEDS: piperacillin-tazobactam 3.375 GM in sodium chloride 0.9% (plus) 50 ML IV (16:03)
--- NOTE | 2022-11-10 16:56 | ANES.PREANE2 ---
Pre-Anesthetic Assessment Height/Weight: Height 1.8 m Weight 120.202 kg Temp Pulse Resp BP Pulse Ox O2 Del Method O2 Flow Rate 97.4 F L 92 16 124/74 95 Room Air 6 11/10/22 15:28 11/10/22 15:28 11/10/22 15:28 11/10/22 15:28 11/10/22 15:28 11/10/22 15:28 11/10/22 14:54 Operation Date: 11/10/22 14:20 Proposed Procedures p Perirectal Abscess Incision And Drainage(Not Applicable) - Chad Tello DO Familial anesthetic complications: none Was Beta Mary taken within 24 hours: N/A Was Clonidine taken within 24 hours: N/A Last intake: Intake Last Liquid Date 11/09/22 Last Liquid Time 23:30 Last Solid Date 11/09/22 Last Solid Time 22:00 Social No alcohol and No tobacco Exam alert, oriented x 3, clear to auscultation bilaterally and regular rate & rhythm Airway Submandibular: within normal limits Cervical ROM: within normal limits Mallampati: Class II Dentition: full CV/HEM Hypertension Metabolic Morbid Obesity Anesthetic Plan ASA status: 2 Anesthesia: Choice Medications/Allergies Home Medications Medication Instructions Recorded Confirmed Last Taken Type lisinopril 10 1 tab PO DAILY #30 tabs 05/26/21 11/09/22 11/08/22 Rx mg-hydrochlorothiazide 12.5 mg tablet mupirocin 2 % topical ointment 1 applic topical TID 10 days #15 11/07/22 11/09/22 Unknown Rx grams sulfamethoxazole 800 1 tab PO BID 7 days #14 tabs 11/07/22 11/09/22 11/09/22 Rx mg-trimethoprim 160 mg tablet (Bactrim DS) multivitamin 1 tab PO DAILY 11/09/22 11/09/22 11/08/22 History Allergies Allergy/AdvReac Type Severity Reaction Status Date / Time adhesive Allergy ALGY-Hives Verified 11/09/22 11:12 Current Medications Generic Name Dose Route Start Last Admin Trade Name Freq PRN Reason Stop Dose Admin Hydrocodone Bitart/Acetaminophen 1 tab 11/09/22 14:58 11/10/22 16:02 Hydrocodone-Acetaminophen 5-325 Mg Tablet PO 1 tab Q4H PRN Administration MODERATE TO SEVERE PAIN Sodium Chloride 1,000 mls @ 100 mls/hr 11/09/22 15:00 11/10/22 11:44 Sodium Chloride 0.9% IV 100 mls/hr .Q10H AASHISH Administration Vancomycin/PEG/NADA/Lysine/Water 1,750 mg in 350 mls @ 233.333 mls/hr 11/09/22 15:30 11/10/22 07:07 Vancocin IV Infused Q12H AASHISH Infusion Piperacillin Sod/Tazobactam 50 mls @ 12.5 mls/hr 11/10/22 13:00 11/10/22 16:03 Sod 3.375 gm/ Sodium Chloride IV 12.5 mls/hr Q8H AASHISH Administration Protocol Morphine Sulfate 4 mg 11/09/22 14:58 11/09/22 16:23 Morphine 4 Mg/Ml Sdv 1 Ml IVP 4 mg Q4H PRN Administration SEVERE PAIN PFSH Anesthesia Social History Smoking and tobacco status: never smoked Alcohol intake: never Substance/Drug Use: never Data Anesthesia 11/09/22 11:56 11/09/22 11:56 Short CBC 11/09/22 Range/Units 11:56 WBC 12.10 H (3.29-11.43) 10^3/uL Hgb 13.70 (11.27-16.99) g/dL Hct 42.4 (37-53) % MCV 91.4 (82-101) fl Plt Count 212 (157-399) 10^3/cmm Neut % (Auto) 74.4 % Neut # (Auto) 9.00 H (1.8-7.7) 10^3/uL BMP 11/09/22 11:56 Sodium 138 Potassium 4.1 Chloride 102 Carbon Dioxide 24 BUN 14 Creatinine 1.3 H Glucose 93 Calcium 9.2 Liver Function 11/09/22 Range/Units 11:56 Total Bilirubin 0.4 (0.15-1.2) mg/dL AST 25 (0-40) U/L ALT 35 (0-41) U/L Alkaline Phosphatase 76 (40-130) U/L Albumin 4.3 (3.5-5.2) g/dL Cardiac Studies: No Data to Display
--- NOTE | 2022-11-10 17:02 | ANE.PACU2 ---
Inpatient post-anesthesia follow up: Airway intact: Yes Vital signs: Temperature 97.4 F Pulse Rate 92 Respiratory Rate 16 Blood Pressure 124/74 Pulse Oximetry 95 Oxygen Delivery Me thod Room Air Oxygen Flow Rate 6 Fraction of Inspir ed Oxygen Hydration adequate: Yes Nausea and vomiting: No Pain level: 2 Mental status: Baseline
[2022-11-10] MEDS: morphine 4 mg/mL SDV 1 mL IVP (18:38)
[2022-11-11] VITALS: BP 111/64; PULSE 78; RESP 17; TEMP 36.4; O2SAT 94
[2022-11-11] MEDS: piperacillin-tazobactam 3.375 GM in sodium chloride 0.9% (plus) 50 ML IV ×2 (00:07→08:27)
[2022-11-11] MEDS: sodium chloride 0.9% 1,000 ML 100 ML IV (00:08)
[2022-11-11 02:56] LABS: Vancomycin Trough < 4.0 ug/mL (10-15)
[2022-11-11 04:00] VITALS: BP 119/76; PULSE 78; RESP 19; TEMP 36.8; O2SAT 96
[2022-11-11] MEDS: vancomycin 1,750 MG/350 ML PIGGYBACK 233.3 MG IV (04:11)
[2022-11-11] MEDS: HYDROcodone-acetaminophen 5-325 mg Tablet 1 TAB PO ×2 (04:14→08:27)
[2022-11-11 08:00] VITALS: BP 138/82; PULSE 72; RESP 15; TEMP 36.6; O2SAT 95
--- NOTE | 2022-11-11 08:54 | P.DS_ITS ---
Discharge Providers Date of Admission: 11/09/22 14:58 Date of Discharge: November 11, 2022 Attending Provider at Admission: Chad Tello DO Attending Provider at Discharge: Chad Tello DO Primary Care Provider: Denis Miller MD Diagnoses at Discharge Discharge Diagnosis (1) Perirectal abscess: Status: Acute Reason for Visit Reason for Visit: abcess sent by Hospital Course Hospital Course This is a very pleasant 32-year-old gentleman who presented to the hospital with a perirectal abscess. This is his third perirectal abscess. CT shows the abscess goes intersphincteric. He underwent incision and drainage and was discharged home in good condition the next day. Physical Exam Narrative: General : Patient is well developed , no acute distress, oriented x3 Head : Normal cephalic, a-traumatic. Ears : Pinnae and external canal are normal. Hearing is normal. Eyes : PERRLA, Sclera and injection are normal. No conjunctival discharge. Nose : Mucous membranes are without erythema. Throat : buccal mucosa is normal, gums are without significant recession or hypertrophy. Lungs : Equal chest rise bilaterally, no use of accessory muscles, trachea is midline. Cor : Rate and rhythm are normal. Abdomen : Soft, ND, NT, no g/r/m Extremities : No edema, no cyanosis or clubbing, dorsalis pedis pulses are present bilaterally, non-tender to palpation of calves. Upper extremities are normal bilaterally. Back : non-tender to palpation, no CVA tenderness. Neuro : CN II - XII intact, Upper and lower extremities have equal and full [facility] Discharge Data Studies Completed and Pending Completed Studies During Hospitalization Category Date Time Status CT pelvis w con* [id number] Stat Cat Scan 11/09/22 11:31 Completed Pending at discharge Category Date Time Status Anaerobic Culture Routine Lab 11/10/22 14:39 Results Vancomycin Trough Timed Lab 11/12/22 02:30 Ordered Wound Culture and Gram Stain Routine Lab 11/10/22 14:39 Results Radiology Impressions Pelvis CT 11/09/22 11:31 IMPRESSION: 4.5 x 1.3 x 1.8 cm left perianal abscess Laboratory Results WBC 12.10 10^3/uL (3.29-11.43) H 11/09/22 11:56 RBC 4.64 10^6/uL (3.85-5.65) 11/09/22 11:56 Hgb 13.70 g/dL (11.27-16.99) 11/09/22 11:56 Hct 42.4 % (37-53) 11/09/22 11:56 MCV 91.4 fl (82-101) 11/09/22 11:56 MCH 29.5 pg (27-33) 11/09/22 11:56 MCHC 32.3 g/dL (30-55) 11/09/22 11:56 RDW 12.7 % (12.1-15.1) 11/09/22 11:56 Plt Count 212 10^3/cmm (157-399) 11/09/22 11:56 MPV 9.3 fL (7.4-10.4) 11/09/22 11:56 Neut % (Auto) 74.4 % 11/09/22 11:56 Lymph % (Auto) 17.6 % 11/09/22 11:56 Polk % (Auto) 6.1 % 11/09/22 11:56 Eos % (Auto) 1.1 % 11/09/22 11:56 Baso % (Auto) 0.5 % 11/09/22 11:56 Neut # (Auto) 9.00 10^3/uL (1.8-7.7) H 11/09/22 11:56 Lymph # (Auto) 2.1 10^3/uL (0.8-4.8) 11/09/22 11:56 Polk # (Auto) 0.7 10^3/uL (0.2-0.9) 11/09/22 11:56 Eos # (Auto) 0.1 10^3/uL (0.0-0.8) 11/09/22 11:56 Baso # (Auto) 0.1 10^3/uL (0.0-0.1) 11/09/22 11:56 Nucleated RBC % (auto) 0 % 11/09/22 11:56 Nucleated RBCs # 0.0 /100WBC 11/09/22 11:56 Sodium 138 mmol/L (136-145) 11/09/22 11:56 Potassium 4.1 mmol/L (3.5-5.1) 11/09/22 11:56 Chloride 102 mmol/L (98-107) 11/09/22 11:56 Carbon Dioxide 24 mmol/L (22-29) 11/09/22 11:56 Anion Gap 16.1 (5-19) 11/09/22 11:56 BUN 14 mg/dL (6-20) 11/09/22 11:56 Creatinine 1.3 mg/dL (0.7-1.2) H 11/09/22 11:56 GFR Calculation 63.2 mL/min (90-130) L 11/09/22 11:56 Glucose 93 mg/dL (65-115) 11/09/22 11:56 Calculated Osmolality 286 mOsm/kg (285-295) 11/09/22 11:56 Lactic Acid 1.0 mmol/L (0.5-2.2) 11/09/22 13:06 Calcium 9.2 mg/dL (8.5-10.5) 11/09/22 11:56 Total Bilirubin 0.4 mg/dL (0.15-1.2) 11/09/22 11:56 AST 25 U/L (0-40) 11/09/22 11:56 ALT 35 U/L (0-41) 11/09/22 11:56 Alkaline Phosphatase 76 U/L (40-130) 11/09/22 11:56 Total Protein 7.6 g/dL (6.6-8.7) 11/09/22 11:56 Albumin 4.3 g/dL (3.5-5.2) 11/09/22 11:56 Globulin 3.3 g/dL (1.3-4.6) 11/09/22 11:56 Vancomycin Trough < 4.0 ug/mL (10-15) L 11/11/22 02:32 Procedures Performed Incision and drainage of perirectal abscess Vitals Last Vital Signs Temp 97.8 F 11/11/22 08:00 Pulse 72 11/11/22 08:00 Resp 15 11/11/22 08:00 BP 138/82 11/11/22 08:00 Pulse Ox 95 11/11/22 08:00 O2 Del Method Room Air 11/11/22 04:00 O2 Flow Rate 6 11/10/22 14:54 Discharge Plan Discharge Patient Disposition: Home Condition: Stable Prescriptions: New amoxicillin-pot clavulanate 875-125 mg tablet 1 tab PO BID Qty: 20 0RF hydrocodone-acetaminophen 10-325 mg tablet 1 tab PO Q6H PRN (Reason: pain) Qty: 20 0RF Rx Instructions: May take half of a tab at a time Colace 100 mg capsule 100 mg PO BID Qty: 14 0RF Continued mupirocin 2 % ointment 1 applic topical TID 10 Days Qty: 15 0RF lisinopril-hydrochlorothiazide 10-12.5 mg tablet 1 tab PO DAILY Qty: 30 0RF multivitamin Tablet 1 tab PO DAILY Discontinued sulfamethoxazole-trimethoprim [Bactrim DS] 800-160 mg tablet 1 tab PO BID 7 Days Qty: 14 0RF Discharge Orders: Discharge Order (Routine); Ordered 11/11/22 Ordered By: Chad Tello Referrals: Denis Miller MD [Primary Care Provider] - 4-7 days Chad Tello DO [Physician] - 2 weeks Discharge Diet: Advance as tolerated Discharge Activity: Resume usual activity Patient Instructions: Opioid Safety Activity Restrictions/Additional Instructions: Change dressing daily with half-inch plain packing gauze. Pack until it cannot be packed anymore. Shower daily with soap and water. Do not soak incision underwater until healed Discharge Attestations Time Spent in Discharge Care*: less than 30 min Quality Metrics Clinical Quality Measures [ No reported AMI, CVA or VTE this stay] Coding Level of Care Code Acute Code for Chg Fwd Diagnoses Perirectal abscess K61.1
== END 2022-11-11 10:35 | disposition home or self-care (01) | DRG 395 ==
LOC: ER 15:21 → MEDSURG 16:10
PROVIDERS: Emergency Medicine; Admitting Provider Surgery; Emergency Provider Nurse Practitioner; PCP Family Medicine; Visit Provider Surgery
PROC: 0J990ZZ Drainage of Buttock Subcutaneous Tissue and Fascia, Open Approach (ICD-10-PCS; CPT 46040; principal; 2022-11-10 14:10)
DX: K61.1 Rectal abscess (principal)
CPT/HCPCS: 36415; 72193; 80053; 80202; 83605; 85025; 87070; 87075; 87077; 87205; 96365; 96375; 96376; 99285; J1100; J2270; J2405; J2543; J2704; J3010; J3372; J7030

== ENCOUNTER 2023-05-09 12:51 | Emergency (ER) | payer OTHER, SELFPAY ==
[2023-05-09 13:05] VITALS: BP 156/88; PULSE 99; RESP 16; TEMP 36.6; O2SAT 99
--- NOTE | 2023-05-09 13:31 | XRR_ITS ---
PROCEDURE INFORMATION: Exam: XR Chest Exam date and time: 05/09/2023 1:36 PM Age: 32 years old Clinical indication: Pain; Chest pressure; Additional info: Cxp TECHNIQUE: Imaging protocol: Radiologic exam of the chest. Views: 1 view. COMPARISON: CR XR chest 1V portable [id number] 10/13/2022 9:23 PM FINDINGS: Lungs: Unremarkable. No consolidation. Pleural spaces: Unremarkable. No pleural effusion. No pneumothorax. Heart/Mediastinum: Unremarkable. No cardiomegaly. Bones/joints: Unremarkable. XR/XR chest 1V portable [id number] IMPRESSION: No acute findings.
--- NOTE | 2023-05-09 13:32 | ECG_ITS ---
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 Measurements Intervals [place] Rate: 94 P: 41 AL: 177 QRS: 7 QRSD: 114 T: 37 QT: 328 QTc: 410 Interpretive Statements SINUS RHYTHM INCOMPLETE RIGHT BUNDLE BRANCH BLOCK [90+ ms QRS DURATION, TERMINAL R IN V1/V2, 40+ ms S IN I/aVL/V4/V5/V6] SEPTAL MYOCARDIAL INFARCTION , PROBABLY OLD [40+ ms Q WAVE IN V1/V2] Compared to ECG 10/13/2022 21:12:44 Incomplete right bundle-branch block now present Myocardial infarct finding now present Electronically Signed On 05-10-2023 10:23:21 CDT by Dany Horan M.D. [id number] f
[2023-05-09] MEDS: aspirin 81 mg Chew Tablet 324 MG PO (13:39)
[2023-05-09] MEDS: lidocaine 2% viscous 15 ML, aluminum-mag hydrox-simethicon 30 ML, sucralfate oral liq 1 GM PO (13:40)
[2023-05-09 13:46] LABS: Basophils # 0.1 10^3/uL (0.0-0.1); Basophils % 0.9 %; Eosinophils # 0.3 10^3/uL (0.0-0.8); Eosinophils % 3.2 %; Hematocrit 47.3 % (37-53); Lymphocytes # 2.1 10^3/uL (0.8-4.8); Lymphocytes % 27.1 %; Mean Corpuscular HGB Conc 31.7 g/dL (30-55); Mean Corpuscular Hemoglobin 29.4 pg (27-33); Mean Corpuscular Volume 92.6 fl (82-101); Mean Platelet Volume 9.4 fL (7.4-10.4); Monocytes # 0.5 10^3/uL (0.2-0.9); Monocytes % 5.8 %; Neutrophils # 4.94 10^3/uL (1.8-7.7); Neutrophils % 62.7 %; Nucleated Red Blood Cells % 0 %; Platelet Count 255 10^3/cmm (157-399); Red Blood Count 5.11 10^6/uL (3.85-5.65); Red Cell Distribution Width 13.2 % (12.1-15.1); White Blood Count 7.87 10^3/uL (3.29-11.43)
[2023-05-09 13:53] LABS: INR 0.99 (0.8-1.2)
[2023-05-09 13:54] LABS: Partial Thromboplastin Time 30.9 SECONDS (23.9-36.7)
--- NOTE | 2023-05-09 13:55 | PC.PHAR ---
Pt states he just started taking TRT therapy recently. 05/09/23
--- NOTE | 2023-05-09 13:58 | ED_ITS ---
HPI - Chest Pain 2 General: Chief Complaint: Chest Pain Stated Complaint: Chest pains Time Seen by Provider: 05/09/23 13:31 History of Present Illness: 32-year-old male presents emergency depa rtment with complaints of substernal burning chest pain for the previous 4 days. He states he is been under a lot of stress recently due to the loss of a family member. He states that thinking about his current life stressors seems to make the burning worse. He describes it as a 3 out of 10 and now states that it is constant. He denies shortness of breath dizziness or lightheaded feeling. He states he has had nothing like this in the past. He states he is concerned as his father suddenly wanted to make sure this was not happening to him. 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 Vital signs as documented. No acute distress at present. Alert and oriented-to person, place, time and situation. Head, eyes, ears, nose, mouth, throat: Normocephalic, atraumatic. Pupils-equal, round, reactive to light. No scleral icterus. Normal-appearing external ears. Normal appearing nasal turbinates, no drainage. No obvious oral lesions, posterior oropharynx without erythema or exudates. Neck: Supple, trachea is midline, no lymphadenopathy, no jugular venous distension, thyromegaly, or carotid bruits. Carotid upstrokes are brisk bilaterally. Lungs: clear to auscultation to all lung [place]. Symmetrical rise and fall of chest, no obvious signs of increased work of breathing at present. Cardiac: Regular rate and rhythm, positive S1, S2. No murmurs, rubs or gallops that I can appreciate Abdomen: Soft, non-tender to palpation, normal active bowel sounds to all quadrants. No palpable masses, no organomegaly and abdominal bruits. Extremities: 2+ pulses in the upper extremities that are equal bilaterally, 2+ pulses in the lower extremities that are equal bilaterally. Non-edematous. Moves all extremities well, sensation to all extremities are noted. Skin: Warm, dry, intact. 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 I did talk with him about his support system he states he does have a good support system he states he feels much better now I did advise him to follow-up with his primary care provider for additional evaluation and possible referral for cardiology. Time: 16:00 Vital Signs: Vital signs: Vital Signs Temperature 97.9 F 05/09/23 13:05 Pulse Rate 87 05/09/23 15:25 Respiratory Rate 18 05/09/23 15:25 Blood Pressure 127/79 05/09/23 15:25 Pulse Oximetry 93 05/09/23 15:25 Oxygen Delivery Me thod Room Air 05/09/23 13:05 MDM - Chest Pain Medical Decision Making Physical exam completed and documented, I will obtain serial cardiac enzymes, serial twelve-lead EKGs, chest x-ray, CBC, CMP, urinalysis, B-type natriuretic peptide, PT/PTT/INR, and a chest x-ray. I will provide cardiac dose aspirin and nitroglycerin administration if indicated. I have reviewed previous and pertinent medical records for assist in obtaining beneficial medical information to improved the care and treatment of the patient. Medical Records I reviewed the patient's medical records. Lab Data I reviewed the patient's lab results. 05/09/23 13:36 05/09/23 13:36 Radiology Impressions Chest X-Ray 05/09/23 13:31 IMPRESSION: No acute findings. Laboratory Results WBC 7.87 10^3/uL (3.29-11.43) 05/09/23 13:36 RBC 5.11 10^6/uL (3.85-5.65) 05/09/23 13:36 Hgb 15.00 g/dL (11.27-16.99) 05/09/23 13:36 Hct 47.3 % (37-53) 05/09/23 13:36 MCV 92.6 fl (82-101) 05/09/23 13:36 MCH 29.4 pg (27-33) 05/09/23 13:36 MCHC 31.7 g/dL (30-55) 05/09/23 13:36 RDW 13.2 % (12.1-15.1) 05/09/23 13:36 Plt Count 255 10^3/cmm (157-399) 05/09/23 13:36 MPV 9.4 fL (7.4-10.4) 05/09/23 13:36 Neut % (Auto) 62.7 % 05/09/23 13:36 Lymph % (Auto) 27.1 % 05/09/23 13:36 Russell % (Auto) 5.8 % 05/09/23 13:36 Eos % (Auto) 3.2 % 05/09/23 13:36 Baso % (Auto) 0.9 % 05/09/23 13:36 Neut # (Auto) 4.94 10^3/uL (1.8-7.7) 05/09/23 13:36 Lymph # (Auto) 2.1 10^3/uL (0.8-4.8) 05/09/23 13:36 Russell # (Auto) 0.5 10^3/uL (0.2-0.9) 05/09/23 13:36 Eos # (Auto) 0.3 10^3/uL (0.0-0.8) 05/09/23 13:36 Baso # (Auto) 0.1 10^3/uL (0.0-0.1) 05/09/23 13:36 Nucleated RBC % (auto) 0 % 05/09/23 13:36 Nucleated RBCs # 0.0 /100WBC 05/09/23 13:36 PT 13.30 SECONDS (12.1-14.9) 05/09/23 13:36 INR 0.99 (0.8-1.2) 05/09/23 13:36 APTT 30.9 SECONDS (23.9-36.7) 05/09/23 13:36 Sodium 139 mmol/L (136-145) 05/09/23 13:36 Potassium 4.1 mmol/L (3.5-5.1) 05/09/23 13:36 Chloride 103 mmol/L (98-107) 05/09/23 13:36 Carbon Dioxide 26 mmol/L (22-29) 05/09/23 13:36 Anion Gap 14.1 (5-19) 05/09/23 13:36 BUN 10 mg/dL (6-20) 05/09/23 13:36 Creatinine 0.8 mg/dL (0.7-1.2) 05/09/23 13:36 GFR Calculation 110.7 mL/min (90-130) 05/09/23 13:36 Glucose 115 mg/dL (65-115) 05/09/23 13:36 Calculated Osmolality 288 mOsm/kg (285-295) 05/09/23 13:36 Calcium 9.7 mg/dL (8.5-10.5) 05/09/23 13:36 Total Bilirubin 0.2 mg/dL (0.15-1.2) 05/09/23 13:36 AST 21 U/L (0-40) 05/09/23 13:36 ALT 27 U/L (0-41) 05/09/23 13:36 Alkaline Phosphatase 55 U/L (40-130) 05/09/23 13:36 Troponin T Baseline < 6 ng/L (0-15) 05/09/23 13:36 Troponin T 120 Minute 6.00 ng/L (0-15) 05/09/23 15:20 Delta Troponin T 0.20921 ABS# (0-10) 05/09/23 15:20 NT-Pro-B Natriuret Pep < 36 pg/mL (0-125) 05/09/23 13:36 Total Protein 7.2 g/dL (6.6-8.7) 05/09/23 13:36 Albumin 4.2 g/dL (3.5-5.2) 03/09/24 13:36 Globulin 3.0 g/dL (1.3-4.6) 05/09/23 13:36 All radiology interpretation(s) finalized by discharge EKG Data EKG 1: Interpretation: Twelve-lead EKG obtained at 1303 and 1805 demonstrates sinus rhythm with an incomplete right bundle branch block. Ventricular rate 94 bpm, ME interval 177 QRS duration or depression at present demonstrate acute ischemia or infarction. EKG 2: Interpretation: Twelve-lead EKG obtained at 1523 and reviewed at 1525 demonstrates sinus rhythm with a right bundle branch block, ventricular rate 83 bpm ME interval 190, QRS duration 105, QT 327, QTc [address] elevation or depression to demonstrate acute ischemia or infarction at present. Discharge Plan Discharge Patient Disposition: Home Clinical Impression: Atypical chest pain Condition: Stable Prescriptions: No Action alprazolam 0.25 mg tablet 0.25 mg PO BID PRN (Reason: anxiety) Qty: 20 1RF multivitamin Tablet 1 tab PO DAILY MagOx 400 mg (241.3 mg magnesium) Tablet 400 mg PO DAILY lisinopril-hydrochlorothiazide 10-12.5 mg tablet 1 tab PO QAM Discharge Orders: Discharge ED (Routine); Ordered 05/09/23 Ordered By: Shaka Sams Referrals: Denis Miller MD [Primary Care Provider] - Discharge Diet: Cardiac Discharge Activity: Resume usual activity Patient Instructions: Opioid Safety, Pain Management Activity Restrictions/Additional Instructions: Activity Restrictions/Additional Instructions: Thank you for choosing [facility] for your healthcare needs today. Please realize that you were seen in the Emergency Department and that we are providing you with an emergency medical screening exam and this may not be a complete and all inclusive of all the testing and or medical work-up that you may need to determine your ailment or severity of your illness. It is very important that you follow-up as instructed with your Primary care provider or Specialist for additional evaluation and to discuss your medical treatment plan. You may return to the Emergency Department should you have concerns or if your condition changes or worsens in any way. Coding Level of Care Code ED [employer]ent Management Specialist for Olena Guzmán
[2023-05-09 14:01] VITALS: BP 131/80; PULSE 92; RESP 16; O2SAT 93
[2023-05-09 14:07] LABS: Troponin(5th) Baseline < 6 ng/L (0-15)
[2023-05-09 14:14] LABS: Alanine Aminotransferase 27 U/L (0-41); Albumin Level 4.2 g/dL (3.5-5.2); Alkaline Phosphatase 55 U/L (40-130); Aspartate Amino Transferase 21 U/L (0-40); Blood Urea Nitrogen 10 mg/dL (6-20); Calcium 9.7 mg/dL (8.5-10.5); Carbon Dioxide 26 mmol/L (22-29); Chloride 103 mmol/L (98-107); Creatinine Clr Calc Pharmacy 174.9648; Glomerular Filtration Rate 110.7 mL/min (90-130); Glucose 115 mg/dL (65-115); NT Pro B Type Natriuretic Pept < 36 pg/mL (0-125); Osmolality Calculated 288 mOsm/kg (285-295); Sodium 139 mmol/L (136-145); Total Bilirubin 0.2 mg/dL (0.15-1.2); Total Protein 7.2 g/dL (6.6-8.7)
[2023-05-09 14:38] VITALS: BP 140/61; PULSE 91; RESP 18; O2SAT 93
[2023-05-09] MEDS: nitroglycerin 0.4 mg sublingual Tablet 0.400000000000000022 MG SUBLINGUAL (14:39)
[2023-05-09 14:56] LABS: Anion Gap 14.1 (5-19); Potassium 4.1 mmol/L (3.5-5.1)
[2023-05-09 15:25] VITALS: BP 127/79; PULSE 87; RESP 18; O2SAT 93
--- NOTE | 2023-05-09 15:32 | ECG_ITS ---
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 Measurements Intervals [place] Rate: 83 P: 52 CT: 190 QRS: 25 QRSD: 105 T: 30 QT: 327 QTc: 386 Interpretive Statements SINUS RHYTHM INCOMPLETE RIGHT BUNDLE BRANCH BLOCK [90+ ms QRS DURATION, TERMINAL R IN V1/V2, 40+ ms S IN I/aVL/V4/V5/V6] Compared to ECG 05/09/2023 13:03:06 Myocardial infarct finding no longer present Electronically Signed On 05-10-2023 10:25:19 CDT by Dany Horan M.D. [id number]
[2023-05-09 15:51] LABS: Troponin 5 2HR Delta 0.00001 ABS# (0-10)
== END 2023-05-09 16:06 | disposition home or self-care (01) ==
PROVIDERS: Emergency Provider Internal Medicine; PCP Family Medicine
DX: R07.89 Other chest pain (principal); F17.220 Nicotine dependence, chewing tobacco, uncomplicated
CPT/HCPCS: 71045; 80053; 83880; 84484; 85025; 85610; 85730; 93005; 99285

== ENCOUNTER → 2024-04-29 08:23 | Outpatient (BNVA) | payer OTHER, SELFPAY | PROVIDERS: PCP Family Medicine; Visit Provider Family Medicine | DX: I10 Essential (primary) hypertension (principal) | CPT/HCPCS: 80053; 80061 ==